=== PATIENT | male | born 1950 | race Caucasian/White ===

== ENCOUNTER → 2022-11-27 | Outpatient (CLI) | payer OTHER, SELFPAY ==
--- NOTE | 2022-11-27 | ASPOS_PTH ---
PATIENT: JESSICA DAVIS LOC: [facility] U#:[id number] AGE/SX: 72/M ROOM: RE11/27/[address]: Dr. Joesph Nair MD : 1950 BED: DIS: 11/27/2022 SPEC #: [id number] RECD: 11/27/22 10:33 STATUS: TERRANCE AIKENGaston #: [id number] ISABELLE: 11/27/22 00:[address]: Joesph Nair DEPT: CYTOLOGY RECD BY: Tra Barba ENTERED: 11/27/22 10:34 SP TYPE: ASP HERE OTHR DR: No Primary Care Phys Tissues: Neck, NOS Procedures: Surgery Specimen Level IV Cytology Other Fine Needle Asp on Site HEADER OPERATION: Fine needle aspiration right neck mass PRE-OP DIAGNOSIS: Right neck mass TISSUE SUBMITTED: Right neck mass fluid for cytology DIAGNOSIS CYTOLOGY Fine needle aspiration, right neck mass (smears and cell block): Abundant macrophages consistent with benign cyst contents. See comment. AM:meet 11/28/2022 COMMENT The specimen is evaluated at the time of FNA by Dr. Nnuez. Immediate Evaluation = Abundant macrophages consistent wit benign cyst contents. The specimen contains abundant macrophages consistent with benign cyst contents. The lesion near resolved after aspiration of approximately 2 cc of fluid. Clinical correlation is suggested. CYTOLOGY STUDY Slides are reviewed. CYTOLOGY GROSS Received is 2.0 ml of yellow cloudy material labeled with the patient's name and and designated per the requisition as right neck mass. Submitted for cytology preparation including cell block. / meet 11/27/2022 TC:5 CPT: 41201, 92738, 45870, 12136
== END | disposition home or self-care (01) ==
LOC: LAB 09:29
PROVIDERS: Referring Provider Otolaryngology; Visit Provider Otolaryngology
DX: R22.1 Localized swelling, mass and lump, neck (principal)
CPT/HCPCS: 10021; 88161; 88305